=== PATIENT | male | born 1945 | race Caucasian/White ===

== ENCOUNTER 2016-07-24 14:29 | Emergency (ER) | payer MEDICARE ==
[2016-07-24] MEDS ORDERED: DIPH,PERTUS(ACELL)TETVAC-LF 0.5 ML VIAL IM ONE (14:51)
[2016-07-24] MEDS ORDERED: BUPIVACAINE (PF) 0.5% 30 ML VIAL SQ STA (14:52)
[2016-07-24] MEDS ORDERED: ONDANSETRON 4 MG/2 ML VIAL IVP STA (14:56)
--- NOTE | 2016-07-24 14:56 | ED ---
Trauma HPI - General Stated Complaint: Fall. Head Injury Time Seen by Provider: 07/24/16 14:39 - History of Present Illness Initial Comments: This 70-year-old white male presents complaining of a fall. He apparently was on a ladder up approximately 4-5 feet when the ladder slipped out from underneath him. He fell down and hit his head and face region. He has a large laceration to his right eyebrow. He also has some swelling infraorbitally on the right side. He apparently did lose consciousness. He's had some nausea but no vomiting. He has a slight headache. He denies any neck pain, back pain , or extremity pain. He denies any chest pain or abdominal pain. This occurred just shortly prior to arrival. He does present via EMS with a c- collar in place an IV established. He is unsure of his last tetanus prophylaxis. No other complaints or modifying factors. - Related Data Home Medications Medication Instructions Recorded Confirmed Eszopiclone [Lunesta] 3 mg PO HS PRN 07/24/16 07/24/16 Lisinopril [Zestril] 20 mg PO DAILY 07/24/16 07/24/16 Mesalamine [Lialda] 1.2 gm PO DAILY 07/24/16 07/24/16 Multivitamins, Thera [Multivitamin 1 tab PO DAILY 07/24/16 07/24/16 (formulary)] Pantoprazole Sodium [Protonix] 40 mg PO DAILY 07/24/16 07/24/16 Simvastatin 20 mg PO DAILY 07/24/16 07/24/16 Tetrahydrozoline 0.05% Ophth 1 drop BOTH EYES QID PRN 07/24/16 07/24/16 [Visine Eye Drops] Previous Rx's Medication Instructions Recorded Ondansetron [Zofran ODT] 8 mg PO Q8HR PRN #12 tab 07/24/16 Sulfamethox-Tmp 800-160Mg [Bactrim 1 tab PO Q12HR #20 tab 07/24/16 DS 800-160 mg] Allergies Allergy/AdvReac Type Severity Reaction Status Date / Time No Known Allergies Allergy Unverified 07/24/16 15:18 Review of Systems ROS Statement: Those systems with pertinent positive or pertinent negative responses have been documented in the HPI. ROS Other: All systems not noted in ROS Statement are negative. General Exam - General Exam Comments Initial Comments: GENERAL: The patient is well nourished and well hydrated. VITAL SIGNS: Heart rate, blood pressure, respiratory rate reviewed as recorded in nurse's notes. EYES: Pupils are round and reactive. Extraocular movements are intact. No conjunctival / lid redness or swelling. ENT: There is significant swelling noted just inferior to the right orbit with a small skin tear noted. There is a 5 cm laceration noted to the right forehead and eyebrow. This is fairly deep. No foreign bodies noted. Airway is patent. Throat is clear. NECK: Nontender. No swelling or evidence of injury. No subcutaneous emphysema. Trachea is midline. No thyroid mass. HEART: Regular rate and rhythm. Good peripheral pulses. LUNGS/CHEST: Breath sounds clear and equal bilaterally. No rales, rhonchi, or wheezes. No ecchymosis, subcutaneous emphysema, or tenderness. ABDOMEN: Abdomen soft without tenderness. No palpable masses or organomegaly. No peritoneal signs. No abdominal wall swelling or ecchymosis. EXTREMITIES: No extremity tenderness. Normal muscle tone and function. No thoracolumbar tenderness. NEUROLOGIC: Sensation is grossly intact. Cranial nerve exam reveals face is symmetrical, tongue is midline, speech is clear. SKIN: There is a small abrasion noted to the right forearm. No induration or masses noted. PSYCHIATRIC: Alert and oriented. Appropriate behavior and judgment. Course Vital Signs 07/24/16 07/24/16 14:30 16:50 Temperature 97.5 F L 97.6 F Pulse Rate 79 78 Respiratory 16 16 Rate Blood Pressure 121/79 141/66 O2 Sat by Pulse 96 98 Oximetry Medical Decision Making - Medical Decision Making The patient was seen and examined. All diagnostics were reviewed. A tetanus prophylaxis is updated. He refuses any pain medication. He receives nausea medication of Zofran. The computed tomography scan of the brain does not show any acute process. The CT of the cervical spine shows some degenerative changes inferiorly. The computed tomography scan of the facial bones shows evidence of a right orbital blowout fracture. There appears to be some degree of extraocular muscle involvement into the fracture. Clinically he has excellent range of motion of his right eye. Nevertheless, it is felt as though he would benefit from following up with ENT and ophthalmology in this regard. He normally lives in [place] and does have an director web to follow-up with that area. He will be giving an ENT referral as well. He has a large laceration above his right eye. This is thoroughly cleansed and anesthetized with lidocaine with bupivacaine, approximately 6 mL. Excellent anesthesia is obtained. The wound was thoroughly cleansed and no foreign bodies are identified. It is quite deep. Some minimal debridement was utilized. It is a complex wound. 5 subcutaneou 5-0 Vicryl sutures were placed. A total of 26 simple interrupted 6-0 nylon sutures are also placed. Excellent closure is noted. No complications are encountered. Antibiotic ointment and dressing is applied. He will be placed on antibiotics to prevent any infection to the wound as well as any potential infection and to the fracture that is exposed to sinus bacteria. He is feeling better on recheck. It is felt as though he is stable for discharge. He has a normal neurologic exam and is able to ambulate without difficulty. Return parameters are discussed. He does receive a tetanus prophylaxis as well. Disposition Clinical Impression: Closed blow-out fracture of right orbit, Head injury, Neck arthritis, Facial laceration, Fall Disposition: HOME SELF-CARE Condition: Fair Instructions: Head Injury (ED), Concussion (ED), Facial Laceration (ED), Facial Fracture (ED) Additional Instructions: Please follow-up with your director web on Wednesday and return sooner if symptoms worsen. Please have your sutures removed in approximately 7 days. Prescriptions: Ondansetron [Zofran ODT] 8 mg PO Q8HR PRN #12 tab PRN Reason: Nausea Sulfamethox-Tmp 800-160Mg [Bactrim DS 800-160 mg] 1 tab PO Q12HR #20 tab Referrals: James Vieira MD [Primary Care Provider] - 1-2 days Jose Kowalski MD [STAFF PHYSICIAN] - 07/27/16 Time of Disposition: 17:46
[2016-07-24 15:01] VITALS: RESP 16
--- NOTE | 2016-07-24 16:48 | CT ---
EXAMINATION TYPE: CT brain papi wills DATE OF EXAM: 07/24/2016 COMPARISON: NONE HISTORY: fall, large contusion and lacerations over right eye CT DLP: total DLP 2152.5 mGycm Automated exposure control for dose reduction was used. TECHNIQUE: CT scan of the head and cervical spine are performed without contrast. FINDINGS: The ventricles and sulci appear normal. There is no mass effect nor midline shift. There is no sign of intracranial hemorrhage. There is opacification of the right maxillary sinus. There is fat density in the right maxillary sinus consistent with blowout fracture. The cervical vertebra have normal alignment. There is narrowing of the disc spaces at C4-5 C5-6 C6-7 with moderate spur formation. The facet joints appear intact. Skull base is intact. There is moderate ly severe cervical spinal stenosis at C5-6 and C6-7. Canal measures 5 mm at C5-6 and 6 mm at C6-7. IMPRESSION: No intracranial abnormality. Blowout fracture right orbit. Spondylotic changes in the lower cervical spine with severe spinal stenosis at C5-6 and C6-7. No frac ture.
--- NOTE | 2016-07-24 16:54 | CT ---
EXAMINATION TYPE: CT facial bones wo con DATE OF EXAM: 07/24/2016 COMPARISON: NONE HISTORY: fall, large contusion and lacerations over right eye CT DLP: total DLP 2152.5 mGycm Automated exposure control for dose reduction was used. TECHNIQUE: CT scan of the sinuses is performed without contrast, axial images are obtained, coronal r eformatted images are also reviewed. FINDINGS: There is significant opacification of the right maxillary sinus with mixed density consistent with fa t and hemorrhage and fluid. There is herniation of orbital fat into the right maxillary sinus. There is a depressed fracture of the floor of the right bony orbit. The displacement is 1 cm. Inferior rect us muscle is partially herniated into the sinus. The mandibular ring is intact. Zygomatic arches appear normal. The globes are symmetric. There is mil d soft tissue swelling over the right frontal bone. IMPRESSION: Soft tissue scalp swelling over the right frontal bone. Depressed blowout fracture of the floor of the right bony orbit with herniation of orbital fat into t he right maxillary sinus. There is partial entrapment of the inferior rectus muscle associated with h erniation. There is hemorrhage and fluid in the right maxillary sinus. There is some mucosal thickening in the ethmoid and frontal sinuses that could relate to the trauma o r pre-existing sinusitis.
[2016-07-24] MEDS ORDERED: BACITRACIN 500 UNIT/GM OINT 28.4 GM TUBE TOPICAL ONE (16:58)
[2016-07-24] MEDS ORDERED: METOCLOPRAMIDE 5 MG/ML 2 ML VIAL IVP STA (16:58)
[2016-07-24 17:52] VITALS: BP 123/76; PULSE 82; TEMP 97.2
== END 2016-07-24 18:27 | disposition home or self-care (01) ==
LOC: EC 14:29
DX: S02.31XA Fracture of orbital floor, right side, initial encounter for closed fracture (principal); S01.111A Laceration without foreign body of right eyelid and periocular area, initial encounter; S01.81XA Laceration without foreign body of other part of head, initial encounter; S09.90XA Unspecified injury of head, initial encounter; M19.90 Unspecified osteoarthritis, unspecified site; R11.0 Nausea; Z23 Encounter for immunization; Z79.899 Other long term (current) drug therapy; W11.XXXA Fall on and from ladder, initial encounter
CPT/HCPCS: 72125; 70486; 70450; 90715; 99284; 12052; 96374; 96375; 90471; J2765; J2405